=== PATIENT | male | born 1940 | race Asian ===

== ENCOUNTER 2020-06-03 18:00 | Emergency (ER) | payer SELFPAY ==
[~2020-06-03] VITALS: Ht 167.6 cm; Wt 73.0 kg
[2020-06-03 18:09] VITALS: BP 150/90
[2020-06-03] MEDS ORDERED: METFORMIN (18:09)
== END 2020-06-03 20:11 | disposition left against medical advice (07) ==
LOC: ER 18:00 → CANBEDREQ 06-04 16:09
DX: I10 Essential (primary) hypertension (principal); E11.9 Type 2 diabetes mellitus without complications; Z00.00 Encounter for general adult medical examination without abnormal findings; Z86.73 Personal history of transient ischemic attack (TIA), and cerebral infarction without residual deficits
CPT/HCPCS: 99283